=== PATIENT | female | born 1955 | race Caucasian/White ===

== ENCOUNTER → 2016-07-19 | Outpatient (CLI) | payer OTHER ==
[~2016-07-19] MED LIST: ALLERGY SHOTS SUBQ; AMITRYPTYLINE PO; BACLOFEN10 MG PO; BREO ELLIPTA 21 EACH INH; FLOVENT DISKUS50 MCG INH; HYDROCHLOROTH12.5 MG PO; LISINOPRIL20 MG PO; MONTELUKAST SOD10 MG PO; MULTIVITAMINS W1 TAB PO; NO MEDICATIONS; OMEPRAZOLE40 M1 PO; OSCAL PO; PREDNISONE; PRILOSEC PO; SPIRIVA INH; ULTRAM PO; VENTOLIN INH; VITAMIN D31000 UNIT PO; VOLTAREN75 MG PO; ZITHROMAX PO; ZYRTEC10 M2 PO
--- NOTE | ~2016-07-19 | MR165 ---
[facility] A Service of [facility] RADIOLOGY TEXT RESULTS PATIENT: TERRI BERUMEN LOCATION: [facility] : 55 UNIT #: [id number] AGE: [address]: Marcus Sierra MD SEX: F ORDER DR: [id number] [facility] [address] [place], [place] [address] [id number] O MR#: [id number] Acc #: [id number] NAME: TERRI BERUMEN : 1955 SEX: F STUDY DATE/TIME: 07/19/2016 20:37 UNIT: [facility] ROOM: STUDY DESCRIPTION: MR Shoulder Wo Contrast Rt Attending Physician: Marcus Sierra M.D. Ordering Physician: Marcus Sierra M.D. Primary Care Physician: Fabrizio Porter M.D. MRI CENTER REPORT This report is preliminary unless electronic signature is present. EXAM MRI of the right shoulder without contrast. HISTORY RIGHT SHOULDER PAIN FOR 2 MONTHS; HEARD A POP; NKI TECHNIQUE Multiplanar, multiecho images was performed of the right shoulder utilizing a high field magnet and dedicated protocol. FINDINGS Minimal AC joint arthropathy. Early glenohumeral joint osteoarthritis. Small amount of glenohumeral joint fluid suggests mild synovitis. There is a 8 x 12 mm partial-thickness articular-sided tear within the pre-insertional and critical zone of the supraspinatus tendon measuring 12 mm medial to lateral x 8 mm AP dimension. This is estimated to involve about 50% of the thickness of the tendon. Mild tendinopathy. Infraspinatus tendon appears intact without significant tendinopathy. The teres minor and subscapularis tendons appear intact. No muscle atrophy or edema. There is degeneration of the superior labrum. The biceps anchor unremarkable. The long tendon of the biceps suggests mild tendinopathy. Anterior and posterior labrum unremarkable. The deltoid and extraarticular soft tissues appear normal. IMPRESSION 1. Mild supraspinatus tendinopathy with an 8 x 12 mm partial-thickness articular-sided tear. 2. Mild biceps tendinopathy. 3. Mild glenohumeral joint osteoarthritis. [facility]. [facility] A Service of [facility] RADIOLOGY TEXT RESULTS PATIENT: TERRI BERUMEN [facility] UNIT #: [id number] AGE: [address]: Marcus Sierra MD SEX: F ORDER DR: Dictated by... Deja Mauro M.D. THIS IS AN ELECTRONICALLY VERIFIED REPORT Deja Mauro M.D. at 07/21/2016 8:35 PM MERVAT/munira TD: 07/20/2016 14:55 JOB #: [id number] MRI CENTER REPORT Page 1 of 1 COPY
== END | disposition home or self-care (01) ==
LOC: CMRI 19:27
DX: M75.101 Unspecified rotator cuff tear or rupture of right shoulder, not specified as traumatic (principal); M19.011 Primary osteoarthritis, right shoulder; M75.81 Other shoulder lesions, right shoulder
CPT/HCPCS: 73221

== ENCOUNTER → 2016-08-21 | Outpatient (CLI) | payer OTHER ==
--- NOTE | ~2016-08-21 | CR63 ---
[facility] A Service of [facility] & [facility] RADIOLOGY TEXT RESULTS PATIENT: TERRI BERUMEN LOCATION: [facility] : 55 UNIT #: [id number] AGE: [address]: Michel Morales SEX: F ORDER DR: [id number] [facility] [address] [place], [place] [address] [id number] O MR#: [id number] Acc #: [id number] NAME: TERRI BERUMEN : 1955 SEX: F STUDY DATE/TIME: 08/21/2016 12:12 UNIT: [facility] ROOM: STUDY DESCRIPTION: CR Chest 2 View Attending Physician: Michel Morales A.P.R.N. Referring Physician: Michel Morales A.P.R.N. Ordering Physician: Michel Morales A.P.R.N. Primary Care Physician: Fabrizio Porter M.D. MEDICAL IMAGING REPORT This report is preliminary unless electronic signature is present EXAM Chest, 08/21/2016, [facility]. HISTORY 61-year-old woman preop clearance for right shoulder surgery, short of air with cough, 25 years smoking history, high blood pressure. COMPARISON Chest, 11/30/14. FINDINGS 2 view chest demonstrates normal cardiac size and configuration. Hilar structures and mediastinal contours are preserved. Lungs are hyperinflated with flattened hemidiaphragms. I see no effusion. IMPRESSION Generalized pulmonary hyperinflation consistent with COPD. No acute chest finding. Dictated by... Mario Finney M.D. THIS IS AN ELECTRONICALLY VERIFIED REPORT Mario Finney M.D. at 08/22/2016 8:10 AM TRINA/pino TD: 08/21/2016 19:33 JOB #: [id number] MEDICAL IMAGING REPORT Page 1 of 1 COPY
--- NOTE | ~2016-08-21 | EKG ---
PATIENT: TERRI BERUMEN UNIT #: [id number] Ventricular Rate: 77 BPM Atrial Rate: 77 BPM P-R Interval: 148 ms QRS Duration: 86 ms Q-T Interval: 400 ms QTC Calculation(Bezet): 452 ms P [place]: 72 degrees Calculated R [place]: 36 degrees Calculated T [place]: 53 degrees Diagnosis Line: Normal sinus rhythm Diagnosis Line: Possible Left atrial enlargement Diagnosis Line: Borderline ECG Diagnosis Line: No previous ECGs available Diagnosis Line: Confirmed by TAM GOODWIN MD ([id number]) on Diagnosis Line: 08/22/2016 8:48:02 AM INTERPRETING MD: BUDDY TIDWELL
[2016-08-21 12:09] LABS: HEMOGLOBIN 13.5 gm/dL (12.0-16.0); MEAN CELL VOLUME 93.7 FL (83-96); MEAN CORPUSCULAR HEMOGLOBIN 30.2 PG (28-34); MEAN CORPUSCULAR HGB CONC 32.2 g/dL (30-36); MEAN PLATELET VOLUME 8.5 FL (6.5-11.5); RED BLOOD COUNT 4.48 X10e (3.90-5.30); RED CELL DISTRIBUTION WIDTH 13.6 % (11.0-15.5); URINE APPEARANCE CLEAR; URINE BILIRUBIN NEG (NEG); URINE BLOOD NEG (NEG); URINE COLOR YELLOW; URINE GLUCOSE NEG (NEG); URINE KETONE NEG (NEG); URINE LEUKOCYTE ESTERASE NEG (NEG); URINE NITRATE NEG (NEG); URINE PROTEIN NEG (NEG); URINE SPECIFIC GRAVITY 1.006 (1.003-1.035); URINE UROBILINOGEN 0.2 MG/DL (NEG); WHITE BLOOD COUNT 8.4 X10e3 (4.0-10.5)
[2016-08-21 12:20] LABS: INR 0.9; PROTHROMBIN TIME (PATIENT) 9.6 SECONDS (9.6-11.5)
[2016-08-21 12:49] LABS: ALBUMIN SERUM 4.2 g/dL (3.5-5.0); BILIRUBIN,TOTAL 0.5 mg/dL (0.2-2.0); CALCIUM SERUM 9.5 mg/dL (8.4-10.2); CREATININE SERUM 0.6 mg/dL (0.6-1.4); GLOM FILT RATE Estimated 98.4 mL/min (>60); POTASSIUM 4.3 mmol/L (3.5-5.1); PROTEIN TOTAL SERUM 6.6 g/dL (6.0-8.3)
== END | disposition home or self-care (01) ==
LOC: CLAB 11:13
PROVIDERS: Nurse Practitioner Family
DX: Z01.818 Encounter for other preprocedural examination (principal); R91.8 Other nonspecific abnormal finding of lung field
CPT/HCPCS: 36415; 71020; 80053; 80061; 81003; 84443; 85027; 85610; 93005

== ENCOUNTER → 2016-09-11 | Outpatient (CLI) | payer OTHER ==
[2016-09-11 14:19] LABS: HEMATOCRIT 42.7 % (35.0-45.0); HEMOGLOBIN 14.1 gm/dL (12.0-16.0); MEAN CELL VOLUME 92.2 FL (83-96); MEAN CORPUSCULAR HEMOGLOBIN 30.4 PG (28-34); MEAN PLATELET VOLUME 8.6 FL (6.5-11.5); RED BLOOD COUNT 4.64 X10e (3.90-5.30); RED CELL DISTRIBUTION WIDTH 13.4 % (11.0-15.5); WHITE BLOOD COUNT 7.2 X10e3 (4.0-10.5)
[2016-09-11 14:41] LABS: URINE APPEARANCE CLEAR; URINE BILIRUBIN NEG (NEG); URINE BLOOD NEG (NEG); URINE COLOR YELLOW; URINE GLUCOSE NEG (NEG); URINE KETONE NEG (NEG); URINE LEUKOCYTE ESTERASE NEG (NEG); URINE NITRATE NEG (NEG); URINE PH 6.5 (5-8); URINE PROTEIN NEG (NEG); URINE SPECIFIC GRAVITY 1.007 (1.003-1.035); URINE UROBILINOGEN 0.2 MG/DL (NEG)
[2016-09-11 15:17] LABS: BUN/CREATININE RATIO 25.71; CALCIUM SERUM 9.4 mg/dL (8.4-10.2); CREATININE SERUM 0.7 mg/dL (0.6-1.4); GLOM FILT RATE Estimated 93.5 mL/min (>60); POTASSIUM 4.5 mmol/L (3.5-5.1)
[2016-09-11 15:52] LABS: CULTURE INDICATED? NO
== END | disposition home or self-care (01) ==
LOC: EDSTATUS 13:00 → CAMB 13:00
PROVIDERS: Orthopaedic Surgery
DX: Z01.812 Encounter for preprocedural laboratory examination (principal); M75.101 Unspecified rotator cuff tear or rupture of right shoulder, not specified as traumatic
CPT/HCPCS: 36415; 80048; 81003; 85027

== ENCOUNTER → 2016-09-14 | Day surgery (SDC) | payer OTHER ==
--- NOTE | ~2016-09-14 | OR ---
Unit #: [id number] #: [id number] Patient: TERRI BERUMEN [id number] [address] [place], [place] [address] [id number] O MR#: [id number] NAME: TERRI BERUMEN. ROOM: Date of Procedure: 09/14/2016 Admission Date: 09/14/2016 Surgeon: Marcus Sierra M.D. : 1955 Attending Physician: Marcus Sierra M.D. Primary Care Physician: Fabrizio Porter M.D. OPERATIVE REPORT PREOPERATIVE DIAGNOSIS Impingement with partial cuff tear. POSTOPERATIVE DIAGNOSES Impingement with partial cuff tear and degenerative joint disease of glenohumeral joint. PROCEDURES PERFORMED Arthroscopy, subacromial decompression and debridement, and mini open rotator cuff repair right shoulder. HISTORY AND FINDINGS The patient is a 61-year-old, who has been having progressively increasing pain in the shoulder. She had been treated conservatively with medications, injections, and continued to have persistent symptoms. She had MRI which reveals a rotator cuff tear with tendinopathy. As she failed conservative measures, she was offered arthroscopic evaluation. Procedure was explained including risks of anesthesia and complications of surgery like infection, neurovascular injury, stiffness, residual symptoms, need for further surgery have been explained. She voices understanding and wishes to proceed. DESCRIPTION OF PROCEDURE After induction of general anesthesia, the patient was placed in the beach chair position with all bony prominences adequately padded. The right shoulder was examined. It was possible to take the shoulder through a full range of motion. No clinical instability was elicited and then the right shoulder was prepped and draped in the usual sterile manner. Time-out was called. Operative site was confirmed. Then, the right shoulder joint was infiltrated with 1% Xylocaine with epi. Then, through a posterior portal, arthroscopy was performed. The patient had a degenerative synovitis encountered and also fraying of the labrum and initially the biceps and superior labrum was checked and was found to be intact. Anterior labrum and the glenohumeral ligaments were intact with the fraying and degenerative changes. Inferior labrum and recess was intact. No loose body was identified. The glenohumeral joint revealed the degenerative changes and the superior humeral head portions revealed grade 4 changes and posterior labrum was found to be intact, so anterior portal was established and a shaver was introduced and debridement of the glenohumeral joint and the labrum was carried out. The biceps tendon was followed to the intertubercular sulcus, was found to be intact. Subscapularis was found to be intact. Supraspinatus revealed a high-grade Unit #: [id number] #: [id number] Patient: TERRI BERUMEN B tear and the posterior cuff was intact. The high-grade tear was debrided and further probed and at this point, it was decided to do a cuff repair considering the significant thinning of the cuff in this area, so after debridement of the glenohumeral joint, the scope was withdrawn and introduced into the subacromial space. A subacromial bursectomy and anterior acromioplasty was performed. Bursal side of the cuff was examined and revealed some thinning, and the probe could be introduced into the shoulder joint and after subacromial decompression, a mini arthrotomy was performed using a 2.5 cm long incision. Incision deepened down through the subacromial space and the tear site was examined and it was found to be quite thin and the probe could be easily entered into the shoulder joint. Using an 11 blade knife, this high-grade tear was converted to a complete tear. Then, using a shaver, the greater tuberosity was shaved to cortical bleeding bone and using a rasp, this was freshened with the preparation of the greater tuberosity. Using a Scorpion, a FiberTape was introduced and a single 4.75 SwiveLock suture anchor was used to repair the cuff to the greater tuberosity. Good approximation was obtained and the operative wound was irrigated and 0 Vicryl was used to approximate the deltoid, 2-0 plain for the subcutaneous tissue, and 4-0 nylon for the skin. Sterile compression dressing and a shoulder immobilizer was given. Blood loss was approximately 20 mL. The patient received preop antibiotics. Tolerated the procedure well, was transferred to the recovery room in satisfactory condition. POSTOPERATIVE INSTRUCTIONS 1. Ice packs to the right shoulder and range of motion to the wrist and elbow and continued immobilization of the shoulder. 2. Grover 7.5 mg p.o. q.6 hours p.r.n. 3. She was given a followup appointment. Return to my office in one week. If any problems, to contact me. Dictated by... Sivan Pedraza/hosea TD: 09/15/2016 13:25 JOB #: [id number] OPERATIVE REPORT Page 1 of 1 X Marcus Sirera MD X PROCEDURE OPERATIVE NOTE
== END | disposition home or self-care (01) ==
LOC: CSUR 12:43
DX: M75.101 Unspecified rotator cuff tear or rupture of right shoulder, not specified as traumatic (principal); M75.41 Impingement syndrome of right shoulder; M19.011 Primary osteoarthritis, right shoulder; K21.9 Gastro-esophageal reflux disease without esophagitis; I10 Essential (primary) hypertension; J30.2 Other seasonal allergic rhinitis; J45.909 Unspecified asthma, uncomplicated; J44.9 Chronic obstructive pulmonary disease, unspecified; F17.210 Nicotine dependence, cigarettes, uncomplicated; Z88.5 Allergy status to narcotic agent; Z79.899 Other long term (current) drug therapy; Z90.49 Acquired absence of other specified parts of digestive tract; Z90.710 Acquired absence of both cervix and uterus
CPT/HCPCS: C1713; J0171; J0330; J0690; J1030; J2250; J2370; J2795; J3010